=== PATIENT | male | born 1965 | race Caucasian/White ===

== ENCOUNTER 2016-05-17 07:06 | Emergency (ER) | payer OTHER ==
[2016-05-17] MEDS ORDERED: DEXAMETHASONE 10 MG/ML VIAL PO STA (07:26)
[2016-05-17] MEDS ORDERED: CHERRY SYRUP 10 ML UDC PO ONE (07:31)
[2016-05-17] MEDS ORDERED: DEXAMETHASONE 10 MG/ML VIAL ONE (07:31)
== END 2016-05-17 07:41 | disposition home or self-care (01) ==
DX: H66.006 Acute suppurative otitis media without spontaneous rupture of ear drum, recurrent, bilateral (principal); I10 Essential (primary) hypertension; E11.9 Type 2 diabetes mellitus without complications; Z79.84 Long term (current) use of oral hypoglycemic drugs; Z79.82 Long term (current) use of aspirin
CPT/HCPCS: 99283; A9270

== ENCOUNTER 2016-07-11 13:54 | Emergency (ER) | payer OTHER | END 2016-07-11 16:29 | disposition home or self-care (01) | DX: J01.01 Acute recurrent maxillary sinusitis (principal); I10 Essential (primary) hypertension; E11.9 Type 2 diabetes mellitus without complications; K21.9 Gastro-esophageal reflux disease without esophagitis; Z79.82 Long term (current) use of aspirin ==

== ENCOUNTER 2016-11-06 06:43 | Day surgery (SDC) | payer OTHER ==
[2016-11-06] MEDS ORDERED: KETOROLAC 0.45% OPHTH DROPS ONE (06:52)
[2016-11-06] MEDS ORDERED: CYCLOPENTOLATE 1% OPHTH DROPS 2 ML ONE (06:52)
[2016-11-06] MEDS ORDERED: PHENYLEPHRINE 2.5% OPHTH 2 ML DROPS ONE (06:52)
[2016-11-06] MEDS ORDERED: PROPARACAINE 0.5% OPHTH DROPS 15 ML ONE (06:53)
[2016-11-06] MEDS ORDERED: LACTATED RINGERS 1,000 ML IV ONE (07:16)
--- NOTE | 2016-11-06 07:59 | HISTORY & PHYSICAL EXAMINATION ---
HPI - History of Present Illness HPI Comment/Other: Tyson is here for colonoscopy for history of colonic polyps Past Medical History: Reviewed history and no changes required: Hypertension Hyperlipidemia Severe snoring Sleep Apnea/CPAP Use Diabetes Frequent Indigestion Heartburn Acid Reflux Past Surgical History: Reviewed history and no changes required: Septorhinoplasty 3 discuectomy hemorhoidectomy Family History Summary: Reviewed history and no changes required: 10/03/2016 Father () - Has Family History of Hypertension - Entered On: 10/03/2016 Social History: Reviewed history and no changes required: Risk Factors: Smoked Tobacco Use: Former smoker Cigarettes: Yes -- 2-3 pack(s) per day, Year quit: 1987 Years Since Last Quit: Alcohol use: yes Drinks per day: 1-3 per month Exercise: yes Times per week: very little Previous Tobacco Use: Problems were reviewed with the patient during this visit. Medications were reviewed with the patient during this visit. Allergies were reviewed with the patient during this visit. No known allergies. Physical Exam General: normal appearance and obese. Lungs: clear bilaterally to A & P Heart: regular rate and rhythm, S1, S2 without murmurs, rubs, gallops, or clicks Abdomen: bowel sounds positive; abdomen soft and non-tender without masses, organomegaly, or hernias noted Pulses: pulses normal in all 4 extremities Extremities: no clubbing, cyanosis, edema, or deformity noted with normal full range of motion of all joints Cervical Nodes: no significant adenopathy Psych: alert and cooperative; normal mood and affect; normal attention span and concentration Impression & Recommendations: Problem # 1: Screening for colon cancer proceed with colonoscopy PMH/PSH - Past Medical History Cardiovascular: positive: Hypertension Respiratory: positive: Sleep apnea Endocrine/Autoimmune: positive: Type 2 diabetes GI: positive: GERD MRSA Hx?: No - Past Surgical History Ortho: positive: Other HEENT: positive: Rhinoplasty Social & Family Hx - Social History Does the pt smoke?: No Smoking Status: Never smoker Does the pt drink ETOH?: Yes ETOH Use: Beer, Liquor Does the pt have substance abuse?: No - POLST Patient has POLST: No Meds/Allgy - Home Medications Home Medications: Ambulatory Orders Medication Instructions Recorded Confirmed Aspirin [Aspir 81] 81 mg PO DAILY 05/01/13 11/05/16 Esomeprazole Magnesium [Nexium] 40 mg PO DAILY 05/01/13 07/11/16 Fenofibrate Nanocrystallized 50 mg PO DAILY 05/01/13 11/05/16 [Triglide] Fluoxetine HCl 20 mg PO DAILY 05/01/13 11/05/16 Lisinopril [Zestril] 10 mg PO DAILY 05/01/13 11/05/16 Metformin HCl 500 mg PO BID 05/01/13 11/05/16 Propranolol HCl [Innopran Xl] 80 mg PO DAILY 05/01/13 11/05/16 Vit D3/Folic Acid/B2/B6/B12 1 each PO DAILY 05/01/13 11/05/16 [Folgard Tablet] Fluticasone [Flonase] 1 sprays NETTIE BID PRN #1 bottle 07/11/16 Pseudoephedrine [Sudafed] 30 mg PO Q6H PRN #20 tablet 07/11/16 - Allergies Allergies/Adverse Reactions: Allergies Allergy/AdvReac Type Severity Reaction Status Date / Time No Known Drug Allergies Allergy Verified 11/06/16 07:28 Exam - Vital Signs Vital Signs: Vital Signs x48h Temp Pulse Resp BP Pulse Ox 11/06/16 07:16 37 C 76 14 119/79 96 Results - Lab Results Other Lab Results: Lab Results x24hrs 11/06/16 Range/Units 07:27 POC Whole Bld Glucose 112 H (70 - 100) mg/dL
[2016-11-06] MEDS ORDERED: fentaNYL 100 MCG/2 ML VIAL IVP ONE (08:00)
[2016-11-06] MEDS ORDERED: MIDAZOLAM 2 MG/2 ML VIAL IVP ONE (08:00)
[2016-11-06 09:04] VITALS: BP 141/82
== END 2016-11-06 06:44 | disposition home or self-care (01) ==
LOC: SDS 06:43
PROVIDERS: ATTEND Surgery
PROC: 0DJD8ZZ Inspection of Lower Intestinal Tract, Via Natural or Artificial Opening Endoscopic (ICD-10-PCS; principal; 2016-11-06 08:00)
DX: Z12.11 Encounter for screening for malignant neoplasm of colon (principal); K57.30 Diverticulosis of large intestine without perforation or abscess without bleeding; Q27.33 Arteriovenous malformation of digestive system vessel; E78.5 Hyperlipidemia, unspecified; I10 Essential (primary) hypertension; E11.9 Type 2 diabetes mellitus without complications; K21.9 Gastro-esophageal reflux disease without esophagitis; Z79.84 Long term (current) use of oral hypoglycemic drugs; Z86.010 Personal history of colon polyps; Z87.891 Personal history of nicotine dependence; Z79.82 Long term (current) use of aspirin
CPT/HCPCS: 45378; J7120

== ENCOUNTER 2017-04-23 07:12 | Emergency (ER) | payer OTHER ==
[2017-04-23] MEDS ORDERED: DEXAMETHASONE 10 MG/ML VIAL PO STA (07:38)
[2017-04-23] MEDS ORDERED: HYDROcod/ACETAM 5/325 MG TABLET PO STA (07:38)
[2017-04-23] MEDS ORDERED: LIDOCAINE 1% 2 ML VIAL SUBQ ONE (07:40)
[2017-04-23] MEDS ORDERED: cefTRIAXone 1 GM VIAL IM STA (07:40)
--- NOTE | 2017-04-23 07:43 | ED Physician Documentation ---
PD HPI HEENT - Stated complaint Stated Complaint: HEADACHE/CONGESTION - Chief complaint Chief Complaint: Heent - History obtained from History obtained from: Patient, Family - History of Present Illness Timing - onset: How many weeks ago (3) Timing - duration: Weeks (3) Timing - details: Gradual onset, Still present Location: Right ear, Sinuses Improves: Medication Associated symptoms: Fever, Congestion, Rhinorrhea, Headache, Cough Similar symptoms before: Diagnosis (OM and sinusitis) Recently seen: Not recently seen - Additional information Additional information: 51-year-old male with a history of recurrent rhinosinusitis and otitis media has developed cough and congestion over the past 3 weeks and he is now developed pain in his right ear. He has sinus congestion constantly and has been into see the ear nose and throat doctor at [facility] and surgery has been recommended. His insurance declined the surgery. He has had infection several times per year on a regular basis and usually improves with a azithromycin. Review of Systems Constitutional: reports: Fever Eyes: denies: Decreased vision Ears: reports: Ear pain Nose: reports: Rhinorrhea / runny nose, Congestion, Sinus pressure / pain Throat: denies: Sore throat Cardiac: denies: Chest pain / pressure, Palpitations Respiratory: reports: Cough. denies: Dyspnea GI: denies: Abdominal Pain, Nausea, Vomiting : denies: Dysuria PD PAST MEDICAL HISTORY - Past Medical History Cardiovascular: Hypertension Respiratory: Sleep apnea Endocrine/Autoimmune: Type 2 diabetes GI: GERD - Past Surgical History Past Surgical History: Yes Ortho: Other HEENT: Rhinoplasty - Present Medications Home Medications: Ambulatory Orders Medication Instructions Recorded Confirmed Aspirin [Aspir 81] 81 mg PO DAILY 05/01/13 04/23/17 Esomeprazole Magnesium [Nexium] 40 mg PO DAILY 05/01/13 04/23/17 Fenofibrate Nanocrystallized 50 mg PO DAILY 05/01/13 04/23/17 [Triglide] Fluoxetine HCl 20 mg PO DAILY 05/01/13 04/23/17 Lisinopril [Zestril] 10 mg PO DAILY 05/01/13 04/23/17 Metformin HCl 500 mg PO BID 05/01/13 04/23/17 Propranolol HCl [Innopran Xl] 80 mg PO DAILY 05/01/13 04/23/17 Vit D3/Folic Acid/B2/B6/B12 1 each PO DAILY 05/01/13 04/23/17 [Folgard Tablet] Fluticasone [Flonase] 1 sprays NETTIE BID PRN #1 bottle 07/11/16 04/23/17 Pseudoephedrine [Sudafed] 30 mg PO Q6H PRN #20 tablet 07/11/16 04/23/17 Azithromycin [Zithromax] 250 mg PO DAILY #6 tablet 04/23/17 - Allergies Allergies/Adverse Reactions: Allergies Allergy/AdvReac Type Severity Reaction Status Date / Time No Known Drug Allergies Allergy Verified 11/06/16 07:28 - Social History Does the pt smoke?: No Smoking Status: Never smoker Does the pt drink ETOH?: Yes Does the pt have substance abuse?: No - Immunizations Immunizations are current?: Yes Immunizations: TDAP >10years/unknown - POLST Patient has POLST: No PD ED PE NORMAL - Vitals Vital signs reviewed: Yes (hypertensive ) - General General: Alert and oriented X 3, No acute distress, Well developed/nourished - HEENT HEENT: Atraumatic, PERRL, EOMI, Pharynx benign, Dentition benign, Other (The right TM is inflamed along the umbo with distortion of the landmarks. There is minimal inflamation on the left. ) - Neck Neck: Supple, no meningeal sign, No bony TTP - Cardiac Cardiac: RRR, No murmur - Respiratory Respiratory: No respiratory distress, Clear bilaterally - Abdomen Abdomen: Soft, Non tender - Derm Derm: Normal color, Warm and dry, No rash - Extremities Extremities: No deformity, No edema - Neuro Neuro: No motor deficit, No sensory deficit Eye Opening: Spontaneous Motor: Obeys Commands Verbal: Oriented GCS Score: 15 - Psych Psych: Normal mood, Normal affect Results - Vitals Vitals: Vital Signs - 24 hr 04/23/17 07:15 Temperature 36.0 C L Heart Rate 71 Respiratory 18 Rate Blood Pressure 158/94 H O2 Saturation 96 Oxygen O2 Source Room air PD MEDICAL DECISION MAKING - ED course Complexity details: considered differential, d/w patient, d/w family ED course: 51-year-old male with chronic rhinosinusitis has acute otitis and here in the emergency department is administered DEXA methadone 10 mg orally 1 g of Rocephin IM and we will start him on some azithromycin. He is requesting medication for his headache and he requested single dose. He is administered hydrocodone. Departure - Departure Disposition: 01 Home, Self Care Clinical Impression: Otitis media Qualifiers: Otitis media type: suppurative Chronicity: acute Laterality: right Recurrence: not specified as recurrent Spontaneous tympanic membrane rupture: without spontaneous rupture Qualified Code(s): H66.001 - Acute suppurative otitis media without spontaneous rupture of ear drum, right ear Condition: Stable Instructions: ED Otitis Media Acute Adult Follow-Up: [facility]kin [Provider Group] Prescriptions: Azithromycin [Zithromax] 250 mg PO DAILY #6 tablet Forms: Activity restrictions
[2017-04-23] MEDS ORDERED: CHERRY SYRUP 10 ML UDC PO ONE (08:03)
[2017-04-23 08:28] VITALS: BP 118/68
== END 2017-04-23 08:28 | disposition home or self-care (01) ==
LOC: ED 07:12
DX: H66.001 Acute suppurative otitis media without spontaneous rupture of ear drum, right ear (principal); J32.8 Other chronic sinusitis; I10 Essential (primary) hypertension; E11.9 Type 2 diabetes mellitus without complications; Z79.82 Long term (current) use of aspirin; Z79.4 Long term (current) use of insulin; Z79.84 Long term (current) use of oral hypoglycemic drugs
CPT/HCPCS: 96372; 99283; A9270

== ENCOUNTER 2017-10-01 05:39 | Emergency (ER) | payer OTHER ==
--- NOTE | 2017-10-01 06:59 | ED Physician Documentation ---
PD HPI HEADACHE - Stated complaint Stated Complaint: HEADACHE - Chief complaint Chief Complaint: Neuro - History obtained from History obtained from: Patient - History of Present Illness Timing - onset during: Light activity Timing - duration: Days Timing - details: Gradual onset, Still present, Waxing and waning Worst headache ever?: No: Worst headache ever? Location: Front Quality: Throbbing, Aching (pressure in sinus area) Associated symptoms: No: Fever, Nausea, Vomiting, Weakness, Numbness Contributing factors: Recent illness (nasal congestion and drainage.) Similar symptoms before: Diagnosis (sinus infection) Recently seen: Not recently seen Review of Systems Constitutional: denies: Fever, Chills, Myalgias Nose: reports: Rhinorrhea / runny nose, Congestion, Sinus pressure / pain Throat: denies: Sore throat Respiratory: denies: Cough GI: denies: Nausea, Vomiting Skin: denies: Rash Neurologic: reports: Headache (frontal and maxillary). denies: Focal weakness, Numbness, Confused, Altered mental status PD PAST MEDICAL HISTORY - Past Medical History Cardiovascular: Hypertension Respiratory: Sleep apnea Endocrine/Autoimmune: Type 2 diabetes GI: GERD - Past Surgical History Past Surgical History: Yes Ortho: Other HEENT: Rhinoplasty - Present Medications Home Medications: Ambulatory Orders Medication Instructions Recorded Confirmed Aspirin [Aspir 81] 81 mg PO DAILY 05/01/13 04/23/17 Esomeprazole Magnesium [Nexium] 40 mg PO DAILY 05/01/13 04/23/17 Fenofibrate Nanocrystallized 50 mg PO DAILY 05/01/13 04/23/17 [Triglide] Fluoxetine HCl 20 mg PO DAILY 05/01/13 04/23/17 Lisinopril [Zestril] 10 mg PO DAILY 05/01/13 04/23/17 Metformin HCl 500 mg PO BID 05/01/13 04/23/17 Propranolol HCl [Innopran Xl] 80 mg PO DAILY 05/01/13 04/23/17 Vit D3/Folic Acid/B2/B6/B12 1 each PO DAILY 05/01/13 04/23/17 [Folgard Tablet] Fluticasone [Flonase] 1 sprays NETTIE BID PRN #1 bottle 07/11/16 04/23/17 Pseudoephedrine [Sudafed] 30 mg PO Q6H PRN #20 tablet 07/11/16 04/23/17 Azithromycin [Zithromax] 250 mg PO DAILY #6 tablet 04/23/17 Azithromycin [Zithromax] 250 mg PO DAILY #6 tablet 10/01/17 Cetirizine [ZyrTEC] 10 mg PO DAILY #20 tablet 10/01/17 Dexamethasone [Decadron] 4 mg PO DAILY #5 tablet 10/01/17 HYDROcod/ACETAM 5/325 [[place] 5/325] 1 tab PO Q6H PRN #15 tablet 10/01/17 Ondansetron HCl [Zofran] 4 mg PO Q6H PRN #20 tablet 10/01/17 - Allergies Allergies/Adverse Reactions: Allergies Allergy/AdvReac Type Severity Reaction Status Date / Time No Known Drug Allergies Allergy Verified 10/01/17 05:51 - Social History Does the pt smoke?: No Smoking Status: Never smoker Does the pt drink ETOH?: Yes Does the pt have substance abuse?: No - Immunizations Immunizations are current?: Yes Immunizations: TDAP >10years/unknown - POLST Patient has POLST: No PD ED PE NORMAL - Vitals Vital signs reviewed: Yes - General General: Alert and oriented X 3, No acute distress, Well developed/nourished - HEENT HEENT: Ears normal, Moist mucous membranes, Pharynx benign, Other (frontal and maxilary sinus tender to percussion. ) - Neck Neck: Supple, no meningeal sign, No adenopathy - Cardiac Cardiac: RRR, No murmur - Respiratory Respiratory: Clear bilaterally - Abdomen Abdomen: Soft, Non tender - Derm Derm: Normal color, Warm and dry - Extremities Extremities: No tenderness to palpate, Normal ROM s pain (f) - Neuro Neuro: Alert and oriented X 3, No motor deficit, Normal speech Results - Vitals Vitals: Vital Signs - 24 hr 10/01/17 10/01/17 10/01/17 05:49 07:44 08:27 Temperature 36 C L Heart Rate 68 64 67 Respiratory 17 15 15 Rate Blood Pressure 138/85 H 134/78 H 130/87 H O2 Saturation 97 98 97 Oxygen O2 Source Room air PD MEDICAL DECISION MAKING - ED course Complexity details: considered differential (sounds like sinus headache with infection/allergy type symtpoms. No neuro deficits. ), d/w patient - Sepsis Event Vital Signs: Vital Signs - 24 hr 10/01/17 10/01/17 10/01/17 05:49 07:44 08:27 Temperature 36 C L Heart Rate 68 64 67 Respiratory 17 15 15 Rate Blood Pressure 138/85 H 134/78 H 130/87 H O2 Saturation 97 98 97 Oxygen O2 Source Room air Departure - Departure Disposition: 01 Home, Self Care Clinical Impression: Sinusitis Qualifiers: Sinusitis location: frontal Chronicity: acute Recurrence: recurrent Qualified Code(s): J01.11 - Acute recurrent frontal sinusitis Headache Qualifiers: Headache type: other headache syndrome Qualified Code(s): G44.89 - Other headache syndrome Condition: Stable Record reviewed to determine appropriate education?: Yes Instructions: ED Headache Sinus, ED Sinusitis Abx Tx Prescriptions: Azithromycin [Zithromax] 250 mg PO DAILY #6 tablet Cetirizine [ZyrTEC] 10 mg PO DAILY #20 tablet Dexamethasone [Decadron] 4 mg PO DAILY #5 tablet HYDROcod/ACETAM 5/325 [[place] 5/325] 1 tab PO Q6H PRN #15 tablet PRN Reason: Pain Ondansetron HCl [Zofran] 4 mg PO Q6H PRN #20 tablet PRN Reason: Nausea / Vomiting Comments: Drink lots of fluids. Rest off work today and tomorrow if needed. For the sinus infection and inflammation, use Zithromax for antibiotic, Decadron for inflammation, cetirizine for fluid congestion. Use ondansetron if needed for nausea and Tylenol or hydrocodone if needed for headache. Recheck if not improving over the next few days. Forms: Activity restrictions Discharge Date/Time: 10/01/17 08:29
[2017-10-01] MEDS: CETIRIZINE 10 MG TABLET PO STA (07:38)
[2017-10-01] MEDS: ONDANSETRON 4 MG/2 ML VIAL IM STA (07:40)
[2017-10-01] MEDS: MORPHINE 10 MG/ML VIAL IM STA (07:42)
[2017-10-01] MEDS: KETOROLAC 60 MG/2 ML VIAL IM STA (07:42)
[2017-10-01] MEDS: DEXAMETHASONE 10 MG/ML VIAL PO STA (07:43)
[2017-10-01] MEDS ORDERED: CHERRY SYRUP 10 ML UDC PO ONE (07:44)
[2017-10-01 08:28] VITALS: BP 130/87
== END 2017-10-01 08:29 | disposition home or self-care (01) ==
LOC: ED 05:39
DX: J01.11 Acute recurrent frontal sinusitis (principal); G44.89 Other headache syndrome; I10 Essential (primary) hypertension; E11.9 Type 2 diabetes mellitus without complications; K21.9 Gastro-esophageal reflux disease without esophagitis; Z79.82 Long term (current) use of aspirin
CPT/HCPCS: 96372; 99283

== ENCOUNTER 2018-11-17 11:31 | Emergency (ER) | payer OTHER ==
[2018-11-17 13:06] LABS: BASOPHILS # (AUTO) 0.1 10^3/uL (0.0-0.1); BASOPHILS % (AUTO) 0.6 %; EOSINOPHILS # (AUTO) 0.2 10^3/uL (0.0-0.7); EOSINOPHILS % (AUTO) 1.9 %; HGB - HEMOGLOBIN 14.1 g/dL (14.0-18.0); LYMPHOCYTES # (AUTO) 2.8 10^3/uL (1.5-3.5); LYMPHOCYTES % (AUTO) 25.9 %; MEAN CORPUSCULAR HEMOGLOBIN 29.9 pg (27.0-31.0); MEAN CORPUSCULAR HGB CONC 32.9 g/dL (32.0-36.0); MEAN CORPUSCULAR VOLUME 90.9 fL (80.0-94.0); MEAN PLATELET VOLUME 9.7 fL (7.4-11.4); MONOCYTES # (AUTO) 0.9 10^3/uL (0.0-1.0); MONOCYTES % (AUTO) 8.6 %; NEUTROPHILS # (AUTO) 6.7 10^3/uL (1.5-6.6); PLT - PLATELET COUNT 278 10^3/uL (130-450); RED BLOOD COUNT 4.71 10^6/uL (4.70-6.10); RED CELL DISTRIBUTION WIDTH 13.2 % (12.0-15.0); WHITE BLOOD COUNT 10.9 x10^3/uL (4.8-10.8)
[2018-11-17 13:24] LABS: ALBUMIN 4.4 g/dL (3.2-5.5); ALBUMIN/GLOBULIN RATIO 1.3 (1.0-2.2); BILIRUBIN,TOTAL 0.6 mg/dL (0.2-1.0); CALCIUM 9.3 mg/dL (8.5-10.3); CREATININE 0.8 mg/dL (0.6-1.2); TOTAL PROTEIN 7.7 g/dL (6.7-8.2)
[2018-11-17 15:14] LABS: BILIRUBIN,URINE NEGATIVE (NEGATIVE); GLUCOSE, URINE (UA) NEGATIVE (NEGATIVE); KETONES,URINE (UA) NEGATIVE (NEGATIVE); LEUKOCYTE ESTERASE, URINE NEGATIVE (NEGATIVE); NITRITE,URINE NEGATIVE (NEGATIVE); OCCULT BLOOD,URINE NEGATIVE (NEGATIVE); PH,URINE 7.5 PH (5.0-7.5); PROTEIN,URINE NEGATIVE (NEGATIVE); UROBILINOGEN,URINE 0.2 (NORMAL) E.U./dL (NORMAL)
[2018-11-17] MEDS ORDERED: SODIUM CHLORIDE 0.9% 1,000 ML IV ONE (15:16)
[2018-11-17 15:20] LABS: CLARITY,URINE CLEAR (CLEAR)
--- NOTE | 2018-11-17 15:20 | ED Physician Documentation ---
PD HPI ABD PAIN - Stated complaint Stated Complaint: SIDE PX - Chief complaint Chief Complaint: Abd Pain - History obtained from History obtained from: Patient, Family - History of Present Illness Timing - onset: How many days ago (3) Timing - duration: Days (3) Timing - details: Gradual onset Pain level max: 6 Pain level now: 5 Quality: Aching, Pain Location: RLQ Radiation: No: Chest, , Lower back, Left flank, Left shoulder, Right flank, Right shoulder, Upper back Improved by: Laying still Worsened by: Moving, Palpation Associated symptoms: Fever (Subjective fevers and sweats), Nausea. No: Vomiting, Hematemesis, Diarrhea, Constipation, Melena, Hematochezia, Dysuria, Hematuria, Chest pain, Dizzy Similar symptoms before: Has not had sx before Recently seen: Not recently seen Review of Systems Ten Systems: 10 systems reviewed and negative Constitutional: denies: Chills Ears: denies: Ear pain Nose: denies: Rhinorrhea / runny nose Cardiac: denies: Chest pain / pressure Respiratory: denies: Cough GI: denies: Vomiting, Diarrhea Skin: denies: Rash Musculoskeletal: denies: Neck pain, Back pain Neurologic: denies: Headache PD PAST MEDICAL HISTORY - Past Medical History Past Medical History: Yes Cardiovascular: Hypertension Respiratory: Sleep apnea Endocrine/Autoimmune: Type 2 diabetes GI: GERD HEENT: Chronic sinusitis - Past Surgical History Past Surgical History: Yes Ortho: Other HEENT: Rhinoplasty - Present Medications Home Medications: Ambulatory Orders Medication Instructions Recorded Confirmed Aspirin [Aspir 81] 81 mg PO DAILY 05/01/13 04/23/17 Esomeprazole Magnesium [Nexium] 40 mg PO DAILY 05/01/13 04/23/17 Fenofibrate Nanocrystallized 50 mg PO DAILY 05/01/13 04/23/17 [Triglide] Fluoxetine HCl 20 mg PO DAILY 05/01/13 04/23/17 Lisinopril [Zestril] 10 mg PO DAILY 05/01/13 04/23/17 Metformin HCl 500 mg PO BID 05/01/13 04/23/17 Propranolol HCl [Innopran Xl] 80 mg PO DAILY 05/01/13 04/23/17 Vit D3/Folic Acid/B2/B6/B12 1 each PO DAILY 05/01/13 04/23/17 [Folgard Tablet] Fluticasone [Flonase] 1 sprays NETTIE BID PRN #1 bottle 07/11/16 04/23/17 Pseudoephedrine [Sudafed] 30 mg PO Q6H PRN #20 tablet 07/11/16 04/23/17 Azithromycin [Zithromax] 250 mg PO DAILY #6 tablet 04/23/17 Azithromycin [Zithromax] 250 mg PO DAILY #6 tablet 10/01/17 Cetirizine [ZyrTEC] 10 mg PO DAILY #20 tablet 10/01/17 HYDROcod/ACETAM 5/325 [[place] 5/325] 1 tab PO Q6H PRN #15 tablet 10/01/17 Ondansetron HCl [Zofran] 4 mg PO Q6H PRN #20 tablet 10/01/17 dexAMETHasone [Decadron] 4 mg PO DAILY #5 tablet 10/01/17 Amox/Clav 875/125 [Augmentin] 1 each PO Q12H #20 tablet 11/17/18 Ondansetron Odt [Zofran] 4 mg TL Q6H PRN #10 tablet 11/17/18 - Allergies Allergies/Adverse Reactions: Allergies Allergy/AdvReac Type Severity Reaction Status Date / Time No Known Drug Allergies Allergy Verified 10/01/17 05:51 - Social History Does the pt smoke?: No Smoking Status: Never smoker Does the pt drink ETOH?: Yes Does the pt have substance abuse?: No - Immunizations Immunizations are current?: Yes Immunizations: TDAP >10years/unknown - POLST Patient has POLST: No PD ED PE NORMAL - Vitals Vital signs reviewed: Yes - General General: Alert and oriented X 3, No acute distress - HEENT HEENT: Moist mucous membranes - Neck Neck: Supple, no meningeal sign - Cardiac Cardiac: RRR, Strong equal pulses - Respiratory Respiratory: No respiratory distress, Clear bilaterally - Abdomen Abdomen: Soft, Non distended, Other (Tender to palpation right lower quadrant McBurney's point. Negative Rovsing. Positive psoas and obturator signs. Positive heeltap.) - Back Back: No CVA TTP - Derm Derm: Warm and dry - Extremities Extremities: No edema - Neuro Neuro: Alert and oriented X 3 Results - Vitals Vitals: Vital Signs - 24 hr 11/17/18 11/17/18 11/17/18 12:11 15:02 16:32 Temperature 36.7 C Heart Rate 65 84 73 Respiratory 18 18 15 Rate Blood Pressure 143/82 H 146/92 H 155/92 H O2 Saturation 97 98 99 Oxygen O2 Source Room air - Labs Labs: Laboratory Tests 11/17/18 11/17/18 11/17/18 13:02 13:02 13:55 WBC 10.9 H RBC 4.71 Hgb 14.1 Hct 42.8 MCV 90.9 MCH 29.9 MCHC 32.9 RDW 13.2 Plt Count 278 MPV 9.7 Neut # (Auto) 6.7 H Lymph # (Auto) 2.8 [place] # (Auto) 0.9 Eos # (Auto) 0.2 Baso # (Auto) 0.1 Absolute Nucleated RBC 0.00 Nucleated RBC % 0.0 Sodium 140 Potassium 4.3 Chloride 102 Carbon Dioxide 25 Anion Gap 13.0 BUN 16 Creatinine 0.8 Estimated GFR (MDRD) 102 Glucose 113 H Calcium 9.3 Total Bilirubin 0.6 AST 21 ALT 32 Alkaline Phosphatase 70 Total Protein 7.7 Albumin 4.4 Globulin 3.3 Albumin/Globulin Ratio 1.3 Lipase 30 Urine Color YELLOW Urine Clarity CLEAR Urine pH 7.5 Ur Specific [place] 1.020 Urine Protein NEGATIVE Urine Glucose (UA) NEGATIVE Urine Ketones NEGATIVE Urine Occult Blood NEGATIVE Urine Nitrite NEGATIVE Urine Bilirubin NEGATIVE Urine Urobilinogen 0.2 (NORMAL) Ur Leukocyte Esterase NEGATIVE Ur Microscopic Review NOT INDICATED Urine Culture Comments NOT INDICATED - Rads (name of study) CT abdomen and pelvis Radiology: Prelim report reviewed, EMP read contemporaneously, See rad report ( No bowel obstruction or inflammatory process associated with the bowel. 2. Diverticulosis without diverticulitis. 3. The appendix images normally. 4. No free air or fluid in the abdomen or pelvis. ) PD MEDICAL DECISION MAKING - ED course Complexity details: reviewed results, re-evaluated patient, considered differential, d/w patient, d/w family ED course: 53-year-old male presents the emergency room with right lower quadrant abdominal pain. Normal appendix on CT scan. He does have a mild leukocytosis. Possible bowel inflammation in the right lower quadrant on my read of the CT. Will place him on Augmentin and follow-up closely with his doctor. He is well- appearing, nontoxic. Afebrile. Patient counseled regarding signs and symptoms for which I believe and urgent re-evaluation would be necessary. Patient with good understanding of and agreement to plan and is comfortable going home at this time This document was made in part using voice recognition software. While efforts are made to proofread this document, sound alike and grammatical errors may occur. Departure - Departure Disposition: Home, Self Care Clinical Impression: Abdominal pain Qualifiers: Abdominal location: right lower quadrant Qualified Code(s): R10.31 - Right lower quadrant pain Condition: Good Instructions: ED Abdominal Pain Appendx Poss Follow-Up: your,doctor [Other] - Within 3 Days Prescriptions: Amox/Clav 875/125 [Augmentin] 1 each PO Q12H #20 tablet Ondansetron Odt [Zofran] 4 mg TL Q6H PRN #10 tablet PRN Reason: Nausea / Vomiting Comments: The cause of your symptoms is unclear today. Your appendix appears normal on the CT scan. We will try you on Augmentin. Return if you worsen, especially for worsening pain, fevers or any other new or worsening symptoms. You should follow-up with your doctor within 3 days for repeat abdominal exam. Take all antibiotics until gone, even if you are feeling better. Discharge Date/Time: 11/17/18 17:32
[2018-11-17] MEDS ORDERED: IOVERSOL 320 100 ML VIAL IVP ONE ×2 (15:46→18:09)
[2018-11-17 16:33] VITALS: BP 155/92
--- NOTE | 2018-11-17 16:51 | CT Report ---
Reason: RLQ abd pain Procedure Date: 11/17/2018 Accession Number: [id number] / [id number] Procedure: CT - Abdomen/Pelvis W CPT Code: FULL RESULT: EXAM: CT ABDOMEN AND PELVIS EXAM DATE: 11/17/2018 04:32 PM. CLINICAL HISTORY: RLQ abd pain. COMPARISONS: None. TECHNIQUE: Routine helical CT imaging was performed through the abdomen and pelvis. IV contrast: 50 mL Optiray 320. Enteric contrast: No. Reconstructions: Coronal and sagittal. In accordance with CT protocol optimization, one or more of the following dose reduction techniques were utilized for this exam: automated exposure control, adjustment of mA and/or KV based on patient size, or use of iterative reconstructive technique. FINDINGS: Lung Bases: Unremarkable. Liver: Normal. No masses. Gallbladder/Bile Ducts: Unremarkable. Spleen: Normal. Pancreas: Normal. Adrenal Glands: Normal. Kidneys: Normal. No masses or hydronephrosis. Peritoneal Cavity/Bowel: Normal. No free fluid, free air or adenopathy. No masses or acute inflammatory process. The appendix is well visualized and normal. Pelvic Organs: Normal. The bladder and visualized pelvic organs are within normal limits. Vasculature: No aneurysms or other significant abnormality. Bones: No significant abnormality. Other: None. IMPRESSION: 1. No bowel obstruction or inflammatory process associated with the bowel. 2. Diverticulosis without diverticulitis. 3. The appendix images normally. 4. No free air or fluid in the abdomen or pelvis. [facility]
[2018-11-17] MEDS ORDERED: AMOX/CLAV 875 MG/125 MG TABLET PO STA (17:21)
== END 2018-11-17 17:32 | disposition home or self-care (01) ==
LOC: ED 11:31
DX: R10.31 Right lower quadrant pain (principal); D72.829 Elevated white blood cell count, unspecified; I10 Essential (primary) hypertension; E11.9 Type 2 diabetes mellitus without complications; Z79.84 Long term (current) use of oral hypoglycemic drugs
CPT/HCPCS: 36415; 74177; 80053; 81003; 83690; 85025; 99284; A9270; Q9967; 81001; 87086

== ENCOUNTER 2019-10-29 00:11 | Emergency (ER) | payer OTHER ==
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
[2019-10-29] MEDS ORDERED: diazePAM 5 MG TABLET PO STA (02:23)
[2019-10-29] MEDS ORDERED: oxyCODONE/ACET 5/325 Prepack 4 PO STA (02:23)
[2019-10-29] MEDS ORDERED: HYDROmorphone 1 MG/ML CARPUJECT IM STA (02:23)
[2019-10-29 03:09] VITALS: BP 138/71
== END 2019-10-29 03:09 | disposition home or self-care (01) ==
LOC: ED 00:11
DX: S39.012A Strain of muscle, fascia and tendon of lower back, initial encounter (principal); V48.1XXA Car passenger injured in noncollision transport accident in nontraffic accident, initial encounter; Y92.410 Unspecified street and highway as the place of occurrence of the external cause; I10 Essential (primary) hypertension; E11.9 Type 2 diabetes mellitus without complications; Z79.84 Long term (current) use of oral hypoglycemic drugs; Z79.82 Long term (current) use of aspirin
CPT/HCPCS: 96372; 99283; 99284; A9270; J1170

== ENCOUNTER 2019-11-26 09:05 | Outpatient (CLI) | payer OTHER ==
--- NOTE | 2019-11-28 11:14 | MRI Report ---
PROCEDURE: Lumbar Spine W/O INDICATIONS: LOW BACK PAIN TECHNIQUE: Noncontrast sagittal T1 spin echo and T2 fast echo, sagittal STIR, axial T1 and T2 fast spin echo thr ough the lumbar spine. In cases with scoliosis, additional coronal T2 fast spin echo may be performe d. COMPARISON: None. FINDINGS: Image quality: Excellent. Alignment and Curvature: There is normal bony alignment. Bone Marrow: Mild reactive endplate changes noted adjacent to the L1-L2, L2-L3, L3-L4, L4-L5 and L5-S 1 discs. No acute vertebral body compression fractures. Spinal Cord: Conus medullaris terminates at the L1-2 disc level. Visualized cord demonstrates val l signal and size. Paraspinous Soft Tissues: No paravertebral masses. T12-L1: Normal in appearance. L1-L2: Loss of disc signal and height. Mild, diffuse disc bulge. Mild narrowing of the central can al. Mild right and moderate left neural foraminal narrowing. No neural compression. L2-L3: Loss of disc signal and slight loss of disc height. Mild to moderate diffuse disc bulge. Mi ld bilateral facet hypertrophy. Moderate narrowing of the central canal. Moderate right and moderate to severe left neural foraminal narrowing. No neural compression. L3-L4: Loss of disc signal and slight loss of disc height. Moderate, diffuse disc bulge. Moderate f acet and mild ligamentum flavum hypertrophy. Severe narrowing of the central canal with slight compre ssion of the traversing nerve roots of the cauda equina. Severe right and moderate left neural forami nal narrowing with compression of the exiting right L3 nerve root. L4-L5: Loss of disc signal and height. Mild, diffuse disc bulge. Moderate bilateral facet hypertrop hy. Small, approximately 3 mm synovial cyst projects off the medial margin of the left L4-L5 facet. M ild to moderate narrowing of the central canal. Moderate bilateral neural foraminal narrowing. Left L 4-L5 facet synovial cyst abuts and slightly displaces the traversing left L5 nerve root. L5-S1: Loss of disc signal. Mild, diffuse disc bulge. Mild bilateral facet hypertrophy. No central stenosis. Moderate right and severe left neural foraminal narrowing with slight compression of the ex iting left L5 nerve root. IMPRESSION: 1. Multilevel degenerative disc disease. 2. Multilevel facet arthropathy. 3. Severe L3-L4 central canal narrowing with slight compression of the traversing nerve roots of caud a equina. 4. Severe right L3-L4 neural foraminal narrowing with compression of the exiting right L3 nerve root. Severe left L5-S1 neural foraminal narrowing with slight compression of the exiting left L5 nerve ro ot. 5. Small left L4-L5 facet synovial cyst abuts and slightly displaces the traversing left L5 nerve kirstie t. Reviewed by: Albina Garaz MD, PhD on 11/28/2019 11:13 AM PDT Approved by: Albina Garza MD, PhD on 11/28/2019 11:13 AM PDT Station ID: [id number]
== END 2019-11-26 09:06 | disposition home or self-care (01) ==
LOC: DI 09:05
PROVIDERS: ATTEND Family Medicine
DX: M51.36 Other intervertebral disc degeneration, lumbar region (principal); M51.37 Other intervertebral disc degeneration, lumbosacral region; M47.816 Spondylosis without myelopathy or radiculopathy, lumbar region; M47.817 Spondylosis without myelopathy or radiculopathy, lumbosacral region; M48.061 Spinal stenosis, lumbar region without neurogenic claudication; M48.07 Spinal stenosis, lumbosacral region; M71.38 Other bursal cyst, other site
CPT/HCPCS: 72148

== ENCOUNTER 2020-05-04 09:09 | Outpatient (CLI) | payer OTHER ==
--- NOTE | 2020-05-04 12:12 | MRI Report ---
PROCEDURE: Upper Arm/Humerus RT W/O INDICATIONS: RT ARM PAIN TECHNIQUE: Noncontrast coronal and sagittal T1 spin echo and STIR; sagittal T2 fast spin echo with fat saturatio n, axial T1 spin echo and T2 fast spin echo with fat saturation through the right distal humerus and elbow. COMPARISON: None. FINDINGS: Image quality: Excellent. Bones: The visualized bone marrow demonstrates normal signal on all sequences. The overlying cortex appears intact. No fractures lines or intra-osseous lesions. Mild degenerative changes are seen at the elbow and the proximal radioulnar joint, although this exam is not tailored for detailed evaluat ion of the elbow. Soft tissues: There is fluid signal intensity at the insertion of the distal biceps tendon onto the radial tuberosity, compatible with partial tearing. Some of the distal tendon fibers appear to remain in continuity. There is no significant tendon retraction. A small bicipitoradial bursal effusion is present. The scanned muscles demonstrate normal overall bulk and internal signal. Subcutaneous tissues appear normal as well. No soft tissue masses are present. IMPRESSION: High-grade partial tearing of the distal biceps tendon at its insertion onto the radial tuberosity with a small bicipital radial bursal effusion. Some of the distal tendon fibers appear to remain in continuity. Reviewed by: Abram Roberts MD on 05/04/2020 12:11 PM PST Approved by: Abram Roberts MD on 05/04/2020 12:11 PM PST Station ID: [id number]
--- NOTE | 2020-05-04 12:14 | MRI Report ---
PROCEDURE: Forearm RT W/O INDICATIONS: RT ARM PAIN TECHNIQUE: Noncontrast sagittal T1 spin echo and STIR; axial T2 fast spin echo with fat saturation through the f orearm. COMPARISON: None. FINDINGS: Image quality: Excellent. Bones: The visualized bone marrow demonstrates normal signal on all sequences. The overlying cortex appears intact. No fractures lines or intra-osseous lesions. Mild degenerative changes are seen at the elbow and the proximal radioulnar joint, although this exam is not tailored for detailed evaluat ion of the elbow. Soft tissues: There is fluid signal intensity at the insertion of the distal biceps tendon onto the radial tuberosity, compatible with partial tearing. Some of the distal tendon fibers appear to remain in continuity. There is no significant tendon retraction. A small bicipitoradial bursal effusion is present. The scanned muscles demonstrate normal overall bulk and internal signal. Subcutaneous tissues appear normal as well. No soft tissue masses are present. IMPRESSION: High-grade partial tearing of the distal biceps tendon at its insertion onto the radial tuberosity with a small bicipitoradial bursal effusion. Some of the distal tendon fibers appear to re main in continuity. Reviewed by: Abram Roberts MD on 05/04/2020 12:12 PM PST Approved by: Abram Roberts MD on 05/04/2020 12:12 PM PST Station ID: [id number]
== END 2020-05-04 09:10 | disposition home or self-care (01) ==
LOC: DI 09:09
PROVIDERS: ATTEND Family Medicine
DX: S46.221A Laceration of muscle, fascia and tendon of other parts of biceps, right arm, initial encounter (principal)

== ENCOUNTER 2020-06-01 08:49 | Outpatient (CLI) | payer OTHER ==
--- NOTE | 2020-06-01 13:03 | MRI Report ---
PROCEDURE: Thoracic Spine W/O INDICATIONS: PAIN IN THORACIC SPINE TECHNIQUE: Noncontrast sagittal T1 spine echo and T2 fast spin echo, sagittal STIR, axial T1 and T2 fast spin ec ho through the thoracic spine. COMPARISON: None. FINDINGS: Image quality: Excellent. Alignment and Curvature: There is normal bony alignment. Bone Marrow: Mild discogenic marrow edema at the endplates in the mid and lower thoracic spine. No hudson spicious focal marrow signal and caliber. Spinal Cord: Visualized spinal cord is normal in size and signal. Regional Soft Tissues: No paravertebral masses. Miscellaneous: At T11-T12, there is a large disc extrusion in the central, right paracentral, and rig ht subarticular zones which causes moderate spinal canal stenosis, and tenting/flattening the cord wi th effacement of CSF surrounding the cord. Disc material also herniates into the right neural foramin a producing moderate stenosis. There is no spinal canal or neural foraminal narrowing elsewhere in th e thoracic spine. IMPRESSION: Moderate to severe spinal canal stenosis and right-sided neural foraminal stenosis at T1 1-T12 due to disc extrusion. Reviewed by: Luis Aguilar MD on 06/01/2020 1:02 PM PST Approved by: Luis Aguilar MD on 06/01/2020 1:02 PM PST Station ID: [id number]
== END 2020-06-01 08:50 | disposition home or self-care (01) ==
LOC: DI 08:49
PROVIDERS: ATTEND Family Medicine
DX: M51.24 Other intervertebral disc displacement, thoracic region (principal); M48.04 Spinal stenosis, thoracic region